=== PATIENT | female | born 1970 | race Caucasian/White ===

== ENCOUNTER 2016-08-12 10:32 | Outpatient (CLI) | payer MEDICARE, OTHER ==
[2013-10-30 11:41] VITALS: BP 134/60
== END 2016-08-12 10:33 ==
LOC: LABRHC 10:32
PROVIDERS: ATTEND Physician Assistant
DX: R30.0 Dysuria (principal)
CPT/HCPCS: 87086

== ENCOUNTER 2018-07-07 11:23 | Outpatient (CLI) | payer MEDICARE, OTHER ==
[2013-10-30 11:41] VITALS: BP 134/60
== END 2018-07-07 11:30 ==
LOC: LAB 11:23
PROVIDERS: ATTEND Family Medicine
DX: R73.09 Other abnormal glucose (principal)
CPT/HCPCS: 36415; 83036

== ENCOUNTER 2019-03-12 11:35 | Outpatient (CLI) | payer MEDICARE, OTHER ==
[2013-10-30 11:41] VITALS: BP 134/60
[2019-03-12 12:08] LABS: eGFR (Non-African) > 60
== END 2019-03-12 11:37 ==
LOC: LAB 11:35
PROVIDERS: ATTEND Family Medicine
DX: N28.9 Disorder of kidney and ureter, unspecified (principal)
CPT/HCPCS: 36415; 80053